=== PATIENT | female | born 1980 | race Asian ===

== ENCOUNTER 2021-10-28 22:13 | Emergency (ER) | payer OTHER ==
[~2021-10-28] VITALS: Ht 162.6 cm; Wt 53.5 kg
[~2021-10-28 22:13] MED LIST: SYN.1 PO
[2021-10-28 22:25] VITALS: BP 122/73
--- NOTE | 2021-10-28 22:28 | NUR ---
TO LOBBY A/W BED AMBULATORY
[2021-10-28] MEDS ORDERED: NACL 0.9% 1,000 ML IV ONE ×2 (23:10)
--- NOTE | 2021-10-28 23:10 | NUR ---
RECEIVED IN BED 10 WITH C/O SYNCOPAL EPISODE X 3 WHILE DRIVING. DENIES OTHER SX.IS NOW AWAKE, ALERT, AND ORIENTED. DENIES PAIN AT THIS TIME
[2021-10-28 23:30] LABS: BASOPHILS # (AUTO) 0.1 K/uL (0.00-0.22); BASOPHILS % (AUTO) 0.7 % (0.0-2.0); EOSINOPHILS # (AUTO) 0.2 K/uL (0-0.4); EOSINOPHILS % (AUTO) 1.9 % (0.0-4.0); HEMATOCRIT 37.9 % (36-48); HEMOGLOBIN 12.3 g/dL (12.0-16.0); LYMPHOCYTES % (AUTO) 35.7 % (20.5-51.1); MEAN CORPUSCULAR HEMOGLOBIN 21 pg (27-31); MEAN CORPUSCULAR HGB CONC 33 g/dL (33-37); MONOCYTES # (AUTO) 0.7 K/uL (0.8-1.0); MONOCYTES % (AUTO) 8.3 % (1.7-9.3); NEUTROPHILS # (AUTO) 4.5 K/uL (1.8-7.7); NEUTROPHILS % (AUTO) 53.4 % (42.2-75.2); PLATELET COUNT (AUTO) 269 K/uL (140-450); RED BLOOD CELL COUNT(AUTO) 5.84 MIL/uL (4.20-5.40); RED CELL DISTRIBUTION WIDTH 14.5 % (11.6-13.7); WHITE BLOOD COUNT (AUTO) 8.5 K/uL (4.8-10.8)
[2021-10-28 23:43] VITALS: BP 110/63
--- NOTE | 2021-10-28 23:43 | NUR ---
HR SITTING = 86, HR STANDING = 95
[2021-10-28 23:50] LABS: ALBUMIN 3.6 g/dL (3.4-5.0); ANION GAP 9.9 (8-16); CARBON DIOXIDE 28.6 mmol/L (21-32); CREATININE 0.7 mg/dL (0.6-1.3); POTASSIUM 3.5 mmol/L (3.5-5.1); THYROID STIMULATING HORMONE 2.26 uIU/mL (0.34-3.74); TOTAL BILIRUBIN 0.3 mg/dL (0.0-1.0)
--- NOTE | 2021-10-28 23:55 | NUR ---
TO CT VIA [facility]
--- NOTE | 2021-10-29 00:50 | NUR ---
Patient discharged with v/s stable. Written and verbal after care instructions given and explained. Patient verbalized understanding. Ambulatory with steady gait. All questions addressed prior to discharge. Advised to follow up with PMD.
== END 2021-10-29 00:50 | disposition home or self-care (01) ==
LOC: MED 22:13
DX: R55 Syncope and collapse (principal); E03.9 Hypothyroidism, unspecified; Z79.899 Other long term (current) drug therapy
CPT/HCPCS: 36415; 70450; 80053; 84443; 84484; 85025; 85379; 93005; 96360; 99285; J7030

== ENCOUNTER 2022-07-28 10:39 | Emergency (ER) | payer MEDICAID ==
[~2022-07-28] VITALS: Ht 162.6 cm; Wt 50.8 kg
[~2022-07-28 10:39] MED LIST changes: +FLEC50TA PO; +LEVO0.124 PO; -SYN.1 PO
[2022-07-28 10:50] VITALS: BP 113/67
--- NOTE | 2022-07-28 11:00 | NUR ---
PT AMBULATED TO BED 08.
--- NOTE | 2022-07-28 11:39 | NUR ---
41 y/o female bib self with c/o dizziness and difficulty focusing x 2 days. Patient thinks her dizzines is from her new medication she is taking. Patient started new medication on 07/15/22. Medical History: Hypothyroid, Irregular Heart Rate RX: Flecainade, Levothyroxine, Vienva NKDA
--- NOTE | 2022-07-28 13:27 | NUR ---
Dr. Bar evaluating patient at bedside.
[2022-07-28 14:17] LABS: BASOPHILS # (AUTO) 0.1 K/uL (0.00-0.22); BASOPHILS % (AUTO) 1.1 % (0.0-2.0); EOSINOPHILS # (AUTO) 0.1 K/uL (0-0.4); LYMPHOCYTES % (AUTO) 30.5 % (20.5-51.1); MEAN CORPUSCULAR HEMOGLOBIN 21 pg (27-31); MEAN CORPUSCULAR HGB CONC 32 g/dL (33-37); MEAN CORPUSCULAR VOLUME 65.1 fL (80-94); MONOCYTES # (AUTO) 0.4 K/uL (0.8-1.0); MONOCYTES % (AUTO) 5.2 % (1.7-9.3); NEUTROPHILS # (AUTO) 4.2 K/uL (1.8-7.7); NEUTROPHILS % (AUTO) 62.2 % (42.2-75.2); PLATELET COUNT (AUTO) 253 K/uL (140-450); RED BLOOD CELL COUNT(AUTO) 5.69 MIL/uL (4.20-5.40); RED CELL DISTRIBUTION WIDTH 14.9 % (11.6-13.7); WHITE BLOOD COUNT (AUTO) 6.7 K/uL (4.8-10.8)
[2022-07-28 14:51] LABS: ALBUMIN 3.6 g/dL (3.4-5.0); ANION GAP 10.3 (8-16); ASPARTATE AMINOTRANSFERASE 20 U/L (15-37); CARBON DIOXIDE 27.6 mmol/L (21-32); CHLORIDE 105 mmol/L (98-107); CREATININE 0.8 mg/dL (0.6-1.3); GFR ARICAN-AMERICAN 102 mL/min (>90); GLUCOSE 77 mg/dL (74-106); POTASSIUM 3.9 mmol/L (3.5-5.1); SODIUM SERUM 139 mmol/L (136-145); TOTAL BILIRUBIN 0.6 mg/dL (0.0-1.0); UREA NITROGEN, BLOOD 17 mg/dL (7-18)
--- NOTE | 2022-07-28 14:55 | NUR ---
Patient was offered a cup of water.
--- NOTE | 2022-07-28 15:20 | NUR ---
Patient is sitting up on bed, respirations even and unlabored. No signs of distress noted.
[2022-07-28 17:56] VITALS: BP 119/60
--- NOTE | 2022-07-28 17:56 | NUR ---
Patient discharged with v/s stable. Written and verbal after care instructions given. Patient verbalized understanding. Ambulatory with steady gait. All questions addressed prior to discharge. Advised to follow up with PMD.
--- NOTE | 2022-07-28 18:23 | NUR ---
The patient's care was reviewed and supervised by Dayanara Martinez RN.
== END 2022-07-28 17:56 | disposition home or self-care (01) ==
LOC: MED 10:39
DX: I49.9 Cardiac arrhythmia, unspecified (principal); E03.9 Hypothyroidism, unspecified; Z79.899 Other long term (current) drug therapy
CPT/HCPCS: 36415; 80053; 81002; 81025; 84443; 84484; 85025; 93005; 99285

== ENCOUNTER 2022-11-08 16:31 | Emergency (ER) | payer MEDICAID ==
[~2022-11-08] VITALS: Ht 162.6 cm; Wt 54.5 kg
[2022-11-08 16:39] VITALS: BP 101/65
--- NOTE | 2022-11-08 16:43 | NUR ---
WHEELCHAIR ASSISTED TO RESTROOM
--- NOTE | 2022-11-08 16:44 | NUR ---
Charlette ragsdale in [facility] - 11/08/22 at 1650 by [facility] WHEELCHAIR ASSISTED TO BED 8
--- NOTE | 2022-11-08 16:48 | NUR ---
WHEELCHAIR ASSISTED TO BED 8
--- NOTE | 2022-11-08 16:55 | NUR ---
42YO FEMALE PT C/O PRESSURED CHEST PAIN AND SOB FOR<1HR. STATES SUDDEN ONSET WHILE AT REST AND FEELING LIKE SHE WAS GOING TO "FAINT". REPORTS PREVIOUS S/S AND REOCCURING SYNCOPE EPISODES .LAST EPISODE BEING ON 11/06 ALONG WITH NUMBING IN EXTREMETIES, DENIES AT THIS TIME. STATES STARTING NEW RX YESTERDAY OF DIGOXIN ,TO REPLACE FLECAINIDE ,DUE TO DX IRREGULAR HEART RATE . DENIES N/V/D, FEVER OR CHILLS. WHEELCHAIR ASSISTED TO ROOM. PT AAOX4, RESPIRATIONS EVEN AND UNLABORED. ON CASE SUPERVISOR. HOB POSITIONER PER COMFORT. HX: IRREGULAR HEARTBEAT, HYPOTHYROID NKA
--- NOTE | 2022-11-08 17:01 | NUR ---
MD PASTRANA AT BEDSIDE FOR EVALUATION
--- NOTE | 2022-11-08 17:08 | NUR ---
XRAY AT BEDSIDE
[2022-11-08 18:01] LABS: BASOPHILS # (AUTO) 0.1 K/uL (0.00-0.22); BASOPHILS % (AUTO) 1.2 % (0.0-2.0); EOSINOPHILS # (AUTO) 0.1 K/uL (0-0.4); EOSINOPHILS % (AUTO) 1.5 % (0.0-4.0); HEMATOCRIT 37.3 % (36-48); LYMPHOCYTES # (AUTO) 2.2 K/uL (2.5-16.5); LYMPHOCYTES % (AUTO) 34.2 % (20.5-51.1); MEAN CORPUSCULAR HEMOGLOBIN 21 pg (27-31); MEAN CORPUSCULAR HGB CONC 32 g/dL (33-37); MEAN CORPUSCULAR VOLUME 65.1 fL (80-94); MONOCYTES # (AUTO) 0.4 K/uL (0.8-1.0); MONOCYTES % (AUTO) 5.9 % (1.7-9.3); NEUTROPHILS # (AUTO) 3.7 K/uL (1.8-7.7); NEUTROPHILS % (AUTO) 57.2 % (42.2-75.2); PLATELET COUNT (AUTO) 251 K/uL (140-450); RED BLOOD CELL COUNT(AUTO) 5.72 MIL/uL (4.20-5.40); RED CELL DISTRIBUTION WIDTH 15.5 % (11.6-13.7); WHITE BLOOD COUNT (AUTO) 6.5 K/uL (4.8-10.8)
--- NOTE | 2022-11-08 18:48 | NUR ---
pt ambulated to restroom
[2022-11-08 18:51] VITALS: BP 108/64
[2022-11-08 18:52] LABS: CARBON DIOXIDE 26.9 mmol/L (21-32); CREATININE 0.8 mg/dL (0.6-1.3); POTASSIUM 3.9 mmol/L (3.5-5.1)
--- NOTE | 2022-11-08 18:52 | NUR ---
pt ambulated back to room
--- NOTE | 2022-11-08 19:27 | NUR ---
REPORT GIVEN TO MAX GARNER OF CARE AT THIS TIME
--- NOTE | 2022-11-08 19:35 | NUR ---
RESUMED CARE FOR PATIENT. PATIENT CURRENTLY SITTING IN BED ON HER PHONE. PATIENT AAOX4. DENIES CHEST TIGHTNESS OR PRESSURE OR PAIN AT THIS TIME. BED LOW AND LOCKED. SIDE RAIL X1 FOR SAFETY. ALL NEEDS MET.
--- NOTE | 2022-11-08 22:05 | NUR ---
PT PROVIDED D/C INSTRUCTIONS BY DR. PONCE. PT AMBULATORY TO PERSONAL VEHICLE
== END 2022-11-08 22:05 | disposition home or self-care (01) ==
LOC: MED 16:31
DX: R55 Syncope and collapse (principal); R07.89 Other chest pain; E03.9 Hypothyroidism, unspecified; Z79.899 Other long term (current) drug therapy
CPT/HCPCS: 36415; 71045; 80048; 81025; 84484; 85025; 93005; 99285; Q0092

== ENCOUNTER 2022-12-18 21:15 | Emergency (ER) | payer MEDICAID, OTHER ==
[~2022-12-18] VITALS: Ht 162.6 cm; Wt 53.1 kg
[2022-12-18 21:15] VITALS: BP 124/77
--- NOTE | 2022-12-18 21:18 | NUR ---
TO LOBBY A/W BED AMBULATORY
--- NOTE | 2022-12-19 00:13 | NUR ---
[employer]MAN CALLED OUT FOR PATIENT. NO ANSWER
--- NOTE | 2022-12-19 00:13 | NUR ---
LWBS PER RAD
== END 2022-12-19 00:13 | disposition left against medical advice (07) ==
LOC: MED 21:15
DX: R06.02 Shortness of breath (principal); Z53.21 Procedure and treatment not carried out due to patient leaving prior to being seen by health care provider